=== PATIENT | female | born 1970 | race Caucasian/White ===

== ENCOUNTER 2018-11-18 11:03 | Outpatient (CLI) | payer OTHER ==
--- NOTE | 2018-11-18 13:16 | MMO ---
BILATERAL SCREENING MAMMOGRAMS: Date: 11/18/18 Baseline study. This patient's mammogram was interpreted with the assistance of computer-aided detection. History of prior breast reduction with implants. FINDINGS: The breasts show a heterogeneous dense glandular pattern. There are scattered benign-appearing calcif ications. Lymph node in the upper left breast. Axillary lymph nodes bilaterally. Asymmetric scattered densities in both breasts would be consistent with history of prior breast surgery. No focal mass or distortion. Implants appear intact. Recommend 1 year follow-up. IMPRESSION: BIRADS 2: Benign Finding(s) POS: [facility]
== END 2018-11-18 11:04 | disposition home or self-care (01) ==
LOC: SCSMAMMO 11:03
PROVIDERS: ATTEND Family Medicine
DX: Z12.31 Encounter for screening mammogram for malignant neoplasm of breast (principal)
CPT/HCPCS: 77067